=== PATIENT | female | born 1995 | race African-American/Black ===

== ENCOUNTER 2019-09-29 09:07 | Emergency (ER) | payer OTHER ==
[~2019-09-29] VITALS: Ht 152.4 cm; Wt 49.9 kg
[~2019-09-29 09:07] MED LIST: CIPROFLOXACIN500 M1 PO; NOHOMEMEDICATIONS; NORCO 5-325 TA1 EACH PO; PHENERGAN 25 MG25 M1 PO; PROMS25 WY RECTAL; VITAFOL-OB+DHA1 EACH PO; ZOFRAN ODT4 MG PO; ZOFRAN4 MG PO; ZPAK PO
[2019-09-29 09:16] VITALS: BP 128/84
[2019-09-29] MEDS ORDERED: DOXYCYCLINE 10100 MG PO (11:50)
== END 2019-09-29 12:13 | disposition home or self-care (01) ==
LOC: ER 09:07
DX: J18.9 Pneumonia, unspecified organism (principal)